=== PATIENT | female | born 1970 | race Caucasian/White ===

== ENCOUNTER 2024-01-17 08:59 | Outpatient (CLI) | payer OTHER | END 2024-01-17 09:00 | disposition home or self-care (01) | LOC: CSHMAMMO 08:59 | PROVIDERS: ATTEND Family Medicine | DX: Z12.31 Encounter for screening mammogram for malignant neoplasm of breast (principal) | CPT/HCPCS: 77063; 77067 ==

== ENCOUNTER 2025-03-07 08:34 | Outpatient (CLI) | payer BC | END 2025-03-07 08:35 | disposition home or self-care (01) | LOC: CSHMAMMO 08:34 | PROVIDERS: ATTEND Family Medicine | DX: Z12.31 Encounter for screening mammogram for malignant neoplasm of breast (principal) | CPT/HCPCS: 77063; 77067 ==